=== PATIENT | male | born 1990 | race Caucasian/White ===

== ENCOUNTER 2022-03-01 00:39 | Inpatient (IN) | payer OTHER ==
[~2022-03-01] VITALS: Ht 172.7 cm; Wt 76.1 kg
--- NOTE | 2022-03-01 01:20 | NUR ---
Patient BIB [facility] ambulance unit [id number] from [facility] sent in by Dr Jacques for c/o hematuria with blood clot x1 day. Patient arrived with trach/vent with setting of A/C 16, Tidal Volume 500, PEEP 5 and FIO@ 40%. Has a shiley 8. pt does not respond or follow commands. pt with upper body and lower body contractures. 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
[2022-03-01 01:34] LABS: HEMATOCRIT 28.4 % (36.7-47.1); MEAN CORPUSCULAR HEMOGLOBIN 28.2 uug (23.8-33.4); MEAN CORPUSCULAR VOLUME 85.5 fL (73.0-96.2); PLATELET COUNT (AUTO) 536 K/uL (152-348)
[2022-03-01 01:41] LABS: CARBON DIOXIDE 27 mmol/L (21-32); CHLORIDE 99 mmol/L (98-107); CREATININE 0.7 mg/dL (0.6-1.3); GLUCOSE 96 mg/dL (74-106); POTASSIUM 4.1 mmol/L (3.5-5.1); UREA NITROGEN, BLOOD 15 mg/dL (7-18)
--- NOTE | 2022-03-01 01:42 | NUR ---
ekg performed it reveals sinus rhythm with st elevation. I brought this to the attention of Dr. Senior he states this is not correct this is not a correct reading on the ekg it is not an st elevation mi.
--- NOTE | 2022-03-01 01:44 | NUR ---
alerted er outpatient admitting clerk that pt will need to be admitted for hematuria.
[2022-03-01 01:48] LABS: ALANINE AMINOTRANSFERASE 25 U/L (16-63); ALKALINE PHOSPHATASE 88 U/L (50-136); ASPARTATE AMINOTRANSFERASE 20 U/L (15-37); BILIRUBIN,DIRECT 0.1 mg/dL (0.0-0.2); BILIRUBIN,TOTAL 0.2 mg/dL (0.2-1.0); TOTAL PROTEIN, SERUM 6.9 g/dL (6.4-8.2)
[2022-03-01 02:04] LABS: *BILIRUBIN,URIN NEGATIVE (NEGATIVE); *BLOOD, URINE 3+ (NEGATIVE); *CLARITY,URINE TURBID (CLEAR); *KETONES,URINE NEGATIVE (NEGATIVE); *UROBILINOGEN,URINE 0.2 E.U./dl (NORMAL); LEUKOCYTE ESTERASE ,URINE TRACE (NEGATIVE); NITRITE, URINE NEGATIVE (NEGATIVE); UGLUCOSE NEGATIVE (NEGATIVE)
[2022-03-01 02:05] LABS: *COLOR,URINE BLOODY (YELLOW); BACTERIA,URINE NONE SEEN /HPF (NONE SEEN); RBC,URINE TNTC /HPF (0-3); SQUAMOUS EPITHELIAL CELL,UR NONE SEEN /HPF (NONE SEEN)
--- NOTE | 2022-03-01 04:06 | NUR ---
call to epic panel susie Alves
[2022-03-01] MEDS ORDERED: SENN-261 GT (04:09)
[2022-03-01] MEDS ORDERED: LISI-782 GT (04:09)
[2022-03-01] MEDS ORDERED: IPRA4AER IH (04:09)
[2022-03-01] MEDS ORDERED: SPIR25TA6 GT (04:09)
[2022-03-01] MEDS ORDERED: LANS30CA56 GT (04:09)
[2022-03-01] MEDS ORDERED: VIT500LI GT (04:09)
[2022-03-01] MEDS ORDERED: CARV6.252 GT (04:09)
[2022-03-01] MEDS ORDERED: LEVE500S9 GT (04:09)
[2022-03-01] MEDS ORDERED: SULF1TAB48 GT (04:09)
[2022-03-01] MEDS ORDERED: ACET-73 GT (04:09)
[2022-03-01] MEDS ORDERED: DOCU50LI GT (04:09)
[2022-03-01] MEDS ORDERED: MAGN400O6 GT (04:09)
[2022-03-01] MEDS ORDERED: CRAN3875 GT (04:09)
[2022-03-01] MEDS ORDERED: MULT-213 GT (04:09)
[2022-03-01] MEDS ORDERED: FERR220S16 GT (04:09)
[2022-03-01] MEDS ORDERED: ASPI81TA31 GT (04:09)
[2022-03-01] MEDS ORDERED: CLON1TAB GT (04:09)
[2022-03-01] MEDS ORDERED: NA P133E RC (04:09)
[2022-03-01] MEDS ORDERED: ZINC220T3 GT (04:09)
[2022-03-01] MEDS ORDERED: MORP30TA GT (04:09)
[2022-03-01] MEDS ORDERED: BISA10SU61 RC (04:09)
[2022-03-01] MEDS ORDERED: CLON0.1T GT (04:09)
--- NOTE | 2022-03-01 04:11 | NUR ---
Malissa Alves called back from epic panel.
[2022-03-01] MEDS ORDERED: BISACODYL 10 MG SUPP.RECT RC PRN (04:15)
[2022-03-01] MEDS ORDERED: FLEET ENEMA 133 ML BOTTLE RC PRN (04:15)
[2022-03-01] MEDS ORDERED: MAGNESIUM HYDROXIDE 30 ML LIQUID UDC GT PRN ×2 (04:15→11:50)
[2022-03-01] MEDS ORDERED: CLONIDINE HCL 0.1 MG TABLET GT PRN (04:15)
[2022-03-01] MEDS ORDERED: ACETAMINOPHEN ES 500 MG TABLET- SA PATIENTS-PAIN ONLY GT PRN (04:15)
[2022-03-01] MEDS ORDERED: ACETAMINOPHEN 325 MG TABLET PO PRN (04:30)
[2022-03-01] MEDS ORDERED: MAGNESIUM HYDROXIDE 30 ML LIQUID UDC PO PRN (04:30)
[2022-03-01] MEDS ORDERED: ONDANSETRON 4 MG/2 ML VIAL IV PRN (04:30)
[2022-03-01] MEDS ORDERED: REMEDY ESSENTIAL ZINC PASTE 113 GM TP PRN (04:30)
--- NOTE | 2022-03-01 05:07 | NUR ---
report was given to loyd castorena. pt to go to room 321.
[2022-03-01 05:50] VITALS: BP 138/79
--- NOTE | 2022-03-01 05:58 | NUR ---
pt transported to room 321 via [facility]ney with all belongings and accompanied by RT because the pt is on a vent to the trach. ALBERTO Lacey at bedside to receive the pt.
--- NOTE | 2022-03-01 06:00 | NUR ---
Received pt from er via mary. Pt on trach vent. Under the care of Malissa Alves DOLLY OPERATOR. Dx: UTI failed outpatient treatment. No belongings for the pt. Pt iv intact. Pt has gaming catheter intact and draining hematuria. alf assessment done.Admission process and care plan initiated.Pt vital signs stable. Safety and comfort provided. Will continue to monitor
[2022-03-01] MEDS: IV NS 1000 ML 1,000 ML IV PRN ×2 (06:12→17:09)
[2022-03-01] MEDS ORDERED: CEFTRIAXONE /D5W 50ML IVPB **ER PYXIS IV ONE (06:18)
[2022-03-01] MEDS: CEFTRIAXONE 1 G in IV DEXTROSE 5% 50 ML IV SCH (06:22)
--- NOTE | 2022-03-01 07:59 | NUR ---
Sleeping. Trach to vent with setting of TV 500, PEEP 5, FIO2 40 %, AC 16; GT intact, off GT feedings. Garcia catheter to drainage bag with bloody urine
[2022-03-01] MEDS: DOCUSATE SODIUM 100 MG/10 ML LIQUID UDC GT SCH (08:44)
[2022-03-01] MEDS: SPIRONOLACTONE 25 MG TABLET GT SCH (08:44)
[2022-03-01] MEDS: FERROUS SULFATE 300 MG/5 ML LIQUID UDC GT SCH (08:45)
[2022-03-01] MEDS: CARVEDILOL 6.25 MG TABLET GT SCH ×2 (08:45→17:20)
[2022-03-01] MEDS: MORPHINE SULFATE IR 30 MG TABLET GT SCH ×2 (08:45→17:21)
[2022-03-01] MEDS: levETIRAcetam 500 MG/5 ML LIQUID UDC GT SCH ×2 (08:45→17:20)
[2022-03-01] MEDS: ZINC SULFATE 220 MG CAPSULE GT SCH (08:46)
[2022-03-01] MEDS: PANTOPRAZOLE ORAL SUSPENSION 40 MG SUSPDR.PKT GT SCH (08:46)
[2022-03-01] MEDS: ASCORBIC ACID 500 MG TABLET GT SCH (08:46)
[2022-03-01] MEDS: LISINOPRIL 5 MG TABLET GT SCH (08:46)
[2022-03-01] MEDS: MULTIVITAMINS,THERAPEUTIC TABLET GT SCH (08:46)
[2022-03-01] MEDS: JEVITY 1.2 1000 ML LIQUID GT PRN (08:47)
[2022-03-01] MEDS ORDERED: [UNRECOGNIZED DRUG - OTHER] GT SCH (09:00)
[2022-03-01] MEDS ORDERED: Medication Not On Formulary EA (Cran/Vitc/Mannose/Inulin/Brom (Uti-Stat Liquid) 3,875 MG GT SCH (09:00)
[2022-03-01] MEDS ORDERED: JEVITY 1.2 1000 ML LIQUID GT SCH (10:00)
--- NOTE | 2022-03-01 10:00 | NUR ---
Oral care. Secretions suctioned. G Tube feeding started.
[2022-03-01 12:00] VITALS: BP 132/69
--- NOTE | 2022-03-01 13:00 | NUR ---
Father at bedside, supportive, expressed concern
[2022-03-01 16:14] VITALS: BP 141/70
--- NOTE | 2022-03-01 18:03 | NUR ---
Oral care. Secretions suctioned. Skin care. Air mattress followed up. Garcia catheter with dark red urine with no clots noted to 1600 ml urine. Repositioned comfortably. Afebrile.
--- NOTE | 2022-03-01 19:30 | NUR ---
Received pt in no acute distress,. Iv intact. Pt gaming catheter draining well. Pt on vent. Safety and comfort provided. Will continue to monitor.
[2022-03-01 20:00] VITALS: BP 122/65
[2022-03-01] MEDS: SENNOSIDES 1 TABLET GT SCH (21:52)
[2022-03-01] MEDS: ACETAMINOPHEN 325 MG TABLET GT PRN (21:52)
--- NOTE | 2022-03-01 22:10 | NUR ---
Observed pt diaphoretic. Assessed pt heart rate on 125. Will continue to monitor.
--- NOTE | 2022-03-01 22:16 | NUR ---
Notify Dr. Jacques regarding pt has a lot of blood clots coming out from pt penis. ordered continuous bladder irrigation STAT and Hemoglobin and Hematocrit stat.
[2022-03-01] MEDS: CLONAZEPAM 1 MG TABLET GT PRN (22:48)
--- NOTE | 2022-03-01 23:00 | NUR ---
held gtube feeding.
[2022-03-01 23:17] LABS: HEMATOCRIT 32.7 % (36.7-47.1)
[2022-03-02] VITALS (9 sets, daily range): BP systolic 96–123; BP diastolic 65–81
--- NOTE | 2022-03-02 01:48 | NUR ---
Notify fur ironer regarding pt has sustained 132 and report that pt still has hematuria and on continuous bladder irrigation.
--- NOTE | 2022-03-02 01:55 | NUR ---
Dr. Garduno ordered stat EKG. Stat troponin and lactic acid.
[2022-03-02 04:15] LABS: HEMATOCRIT 24.6 % (36.7-47.1); MEAN CORPUSCULAR HEMOGLOBIN 27.6 uug (23.8-33.4); PLATELET COUNT (AUTO) 559 K/uL (152-348)
[2022-03-02 04:22] LABS: CARBON DIOXIDE 24 mmol/L (21-32); CHLORIDE 101 mmol/L (98-107); CREATININE 0.7 mg/dL (0.6-1.3); GLUCOSE 118 mg/dL (74-106); MAGNESIUM 1.8 mg/dL (1.8-2.4); PHOSPHOROUS 5.4 mg/dL (2.5-4.9); POTASSIUM 4.4 mmol/L (3.5-5.1); UREA NITROGEN, BLOOD 14 mg/dL (7-18)
[2022-03-02] MEDS: IV NS 1000 ML 1,000 ML IV PRN ×2 (05:36→22:09)
--- NOTE | 2022-03-02 05:42 | NUR ---
Pt in no acute distress. Iv intact. Pt turned and repositioned. Offload on heels. Pt on sinus tachycardia. Pt on vent.Prescribed medication given and pt tolerated it well. Pt gaming intact and draining red to pinkish color of urine and draining well. . Pt has new gaming cath of Finnish 24 by 20cc . Irrigated 4 bags of 3L normal saline for continuous bladder irrigation and currently on fifth bag. Safety and comfort provided. All needs are met. Will endorse to incoming nurse for continuity of care.
--- NOTE | 2022-03-02 07:50 | NUR ---
INFORMATION SENT:DIALLO,24 HRS REPORT,CONSULTATION,UR 03/01,PSF INSURANCE INFORMATION:RAI [phone] PAGES:27 FAX SENT BY VASYL
[2022-03-02] MEDS: DOCUSATE SODIUM 100 MG/10 ML LIQUID UDC GT SCH (08:15)
[2022-03-02] MEDS: FERROUS SULFATE 300 MG/5 ML LIQUID UDC GT SCH (08:15)
[2022-03-02] MEDS: PANTOPRAZOLE ORAL SUSPENSION 40 MG SUSPDR.PKT GT SCH (08:16)
[2022-03-02] MEDS: MULTIVITAMINS,THERAPEUTIC TABLET GT SCH (08:16)
[2022-03-02] MEDS: ASCORBIC ACID 500 MG TABLET GT SCH (08:16)
[2022-03-02] MEDS: CLONAZEPAM 1 MG TABLET GT PRN ×3 (08:16→23:35)
[2022-03-02] MEDS: SPIRONOLACTONE 25 MG TABLET GT SCH (08:16)
[2022-03-02] MEDS: ZINC SULFATE 220 MG CAPSULE GT SCH (08:16)
[2022-03-02] MEDS: levETIRAcetam 500 MG/5 ML LIQUID UDC GT SCH ×2 (08:16→17:07)
[2022-03-02] MEDS: LISINOPRIL 5 MG TABLET GT SCH (08:17)
[2022-03-02] MEDS: CARVEDILOL 6.25 MG TABLET GT SCH ×2 (08:17→17:02)
[2022-03-02] MEDS: CEFTRIAXONE 1 G in IV DEXTROSE 5% 50 ML IV SCH (08:20)
[2022-03-02] MEDS: MORPHINE SULFATE IR 30 MG TABLET GT SCH ×2 (08:21→17:02)
--- NOTE | 2022-03-02 12:00 | NUR ---
NO ACUTE3 CHANGE FROM MORNING ASSESSMENT
[2022-03-02] MEDS: ACETAMINOPHEN 325 MG TABLET GT PRN (14:18)
--- NOTE | 2022-03-02 15:00 | NUR ---
DR NGUYEN NOTIFIED OF LOW HH 6.8 WITH ORDER TO TRANSFUSE 1 UNIT PRBC
--- NOTE | 2022-03-02 18:00 | NUR ---
BLOOD TRASFUSION STARTED RIGHT UPPER ARM VIA PICC LINE. CLOSELY MONITORED
--- NOTE | 2022-03-02 18:50 | NUR ---
NO BLOOD TRANSFUSION REACTION NOTED. CONTINUE WITH BLOOD TRANSFUSION ORDERED
--- NOTE | 2022-03-02 19:15 | NUR ---
RECEIVED PATIENT IN BED. NONVERBAL. WITH VENT, SATURATING AT 100%. ON TELEMONITOR, SHOWING SINUS TACHYCARDIA, WITH HR OF 79BPM. WITH PICC LINE, BLOOD TRANSFUSION CURRENTLY ONGOING, NO REACTIONS NOTED. WITH GTUBE, JEVITY FEEDING RUNNING AT 50CC/HR. ON GOING BLADDER IRRIGATION, HEMATURIA NOTED, NO SIGNS OF BLOOD CLOTS IN URINE. SIDE RAILS PADDED FOR SAFETY. SAFETY PRECAUTIONS IN PLACE. WILL CONTINUE TO MONITOR.
--- NOTE | 2022-03-02 20:30 | NUR ---
1 UNIT OF PRBC BLOOD TRANSFUSION COMPLETED. ENDING V/S, ORAL TEMP: 99.6, HR 109BPM, RR, 18,O2 SAT 97%, BP 110/72MMHG. ICE PACK PROVIDED.
[2022-03-02] MEDS: SENNOSIDES 1 TABLET GT SCH (20:58)
--- NOTE | 2022-03-02 23:00 | NUR ---
DR. MARTE HERE TO SEE PATIENT.
[2022-03-02] MEDS: JEVITY 1.2 1000 ML LIQUID GT PRN (23:25)
[2022-03-03] VITALS: BP 151/89
--- NOTE | 2022-03-03 01:37 | NUR ---
LÓPEZ CATHETER NOTED TO BE CLOGGED, MANUAL IRRIGATION DONE. BLOOD CLOTS NOTED. ON GOING CONTINUOUS BLADDER IRRIGATION. ON IRRIGATION BAG #2.
[2022-03-03 04:00] VITALS: BP 148/85
[2022-03-03] MEDS: ACETAMINOPHEN 325 MG TABLET GT PRN ×2 (05:48→08:48)
[2022-03-03 06:09] LABS: HEMATOCRIT 23.9 % (36.7-47.1); MEAN CORPUSCULAR HEMOGLOBIN 28.4 uug (23.8-33.4); MEAN CORPUSCULAR VOLUME 86.2 fL (73.0-96.2); PLATELET COUNT (AUTO) 495 K/uL (152-348)
[2022-03-03 06:38] LABS: CARBON DIOXIDE 28 mmol/L (21-32); CHLORIDE 104 mmol/L (98-107); CREATININE 0.6 mg/dL (0.6-1.3); GLUCOSE 127 mg/dL (74-106); MAGNESIUM 1.9 mg/dL (1.8-2.4); PHOSPHOROUS 3.2 mg/dL (2.5-4.9); POTASSIUM 3.8 mmol/L (3.5-5.1); UREA NITROGEN, BLOOD 16 mg/dL (7-18)
[2022-03-03 07:30] VITALS: BP 167/56
[2022-03-03 07:50] VITALS: BP 154/81
[2022-03-03] MEDS: PANTOPRAZOLE ORAL SUSPENSION 40 MG SUSPDR.PKT GT SCH (08:47)
[2022-03-03] MEDS: FERROUS SULFATE 300 MG/5 ML LIQUID UDC GT SCH (08:47)
[2022-03-03] MEDS: CEFTRIAXONE 1 G in IV DEXTROSE 5% 50 ML IV SCH (08:47)
[2022-03-03] MEDS: levETIRAcetam 500 MG/5 ML LIQUID UDC GT SCH ×2 (08:47→16:46)
[2022-03-03] MEDS: DOCUSATE SODIUM 100 MG/10 ML LIQUID UDC GT SCH (08:47)
[2022-03-03] MEDS: CARVEDILOL 6.25 MG TABLET GT SCH ×2 (08:48→16:48)
[2022-03-03] MEDS: MULTIVITAMINS,THERAPEUTIC TABLET GT SCH (08:48)
[2022-03-03] MEDS: ASCORBIC ACID 500 MG TABLET GT SCH (08:49)
[2022-03-03] MEDS: ZINC SULFATE 220 MG CAPSULE GT SCH (08:49)
[2022-03-03] MEDS: MORPHINE SULFATE IR 30 MG TABLET GT SCH ×2 (08:49→16:47)
[2022-03-03] MEDS: IV NS 1000 ML 1,000 ML IV PRN (10:36)
[2022-03-03 16:00] VITALS: BP 121/67
--- NOTE | 2022-03-03 16:11 | NUR ---
Pt is on continuous bladder irrigation, still draining hematuria with clots. Manual irrigation performed every hour to prevent clotting. MD notified, stat H/H order placed. Pt tolerates feeding well. comfort measures provided, will continue to monitor.
[2022-03-03 16:47] LABS: HEMATOCRIT 23.4 % (36.7-47.1)
--- NOTE | 2022-03-03 17:49 | NUR ---
Hgb 7.3 hct 23.4. notified.
--- NOTE | 2022-03-03 18:25 | NUR ---
Pt total output including continuous bladder irrigation = 16,710cc. 12,000cc input of NS irrigation.
[2022-03-03 20:18] VITALS: BP 135/74
[2022-03-03] MEDS: SENNOSIDES 1 TABLET GT SCH (21:16)
[2022-03-04] VITALS (14 sets, daily range): BP systolic 107–152; BP diastolic 46–86
[2022-03-04] MEDS: IV NS 1000 ML 1,000 ML IV PRN
[2022-03-04] MEDS: JEVITY 1.2 1000 ML LIQUID GT PRN (05:00)
--- NOTE | 2022-03-04 06:00 | NUR ---
Pt rested well in between care; bath rendered; repositioned q2h; aspiration precaution maintained; needs attended.
--- NOTE | 2022-03-04 06:30 | NUR ---
total intake from cbi [id number] LESS OUTPUT 8800 TOTAL OUTPUT = 1200 ML
--- NOTE | 2022-03-04 06:43 | NUR ---
on CBI, flushed multiple times; has blood clots; pt's present output now yellow; continue CBI
[2022-03-04 07:24] LABS: MEAN CORPUSCULAR HEMOGLOBIN 28.8 uug (23.8-33.4)
[2022-03-04 07:27] LABS: MEAN CORPUSCULAR VOLUME 87.1 fL (73.0-96.2); PLATELET COUNT (AUTO) 395 K/uL (152-348)
[2022-03-04 07:40] LABS: CARBON DIOXIDE 24 mmol/L (21-32); CHLORIDE 106 mmol/L (98-107); CREATININE 0.5 mg/dL (0.6-1.3); GLUCOSE 114 mg/dL (74-106); POTASSIUM 3.4 mmol/L (3.5-5.1); UREA NITROGEN, BLOOD 20 mg/dL (7-18)
[2022-03-04] MEDS ORDERED: POTASSIUM CHLORIDE 20 MEQ POWDER PACKET GT ONE (07:45)
[2022-03-04 07:58] LABS: HEMATOCRIT 19.2 % (36.7-47.1)
--- NOTE | 2022-03-04 08:26 | NUR ---
Critical lab value reported by lab. Hemoglobin- 6.3 hematocrit- 19.1 MD was notified. Will transfuse one unit of PRBC when available. urine appears yellow this morning, no signs of hematuria at this time. will continue to manually irrigate.
[2022-03-04] MEDS: FERROUS SULFATE 300 MG/5 ML LIQUID UDC GT SCH (09:48)
[2022-03-04] MEDS: CEFTRIAXONE 1 G in IV DEXTROSE 5% 50 ML IV SCH (09:48)
[2022-03-04] MEDS: ASCORBIC ACID 500 MG TABLET GT SCH (09:48)
[2022-03-04] MEDS: DOCUSATE SODIUM 100 MG/10 ML LIQUID UDC GT SCH (09:48)
[2022-03-04] MEDS: ZINC SULFATE 220 MG CAPSULE GT SCH (09:48)
[2022-03-04] MEDS: MULTIVITAMINS,THERAPEUTIC TABLET GT SCH (09:48)
[2022-03-04] MEDS: MORPHINE SULFATE IR 30 MG TABLET GT SCH ×2 (09:48→17:40)
[2022-03-04] MEDS: ACETAMINOPHEN 325 MG TABLET GT PRN (09:49)
[2022-03-04] MEDS: PANTOPRAZOLE ORAL SUSPENSION 40 MG SUSPDR.PKT GT SCH (09:49)
[2022-03-04] MEDS: CARVEDILOL 6.25 MG TABLET GT SCH ×2 (09:49→17:43)
[2022-03-04] MEDS: levETIRAcetam 500 MG/5 ML LIQUID UDC GT SCH ×2 (09:59→17:40)
--- NOTE | 2022-03-04 20:00 | NUR ---
rounds made patient in bed , trach to vent , tolerating vent settings no respiratory distress noted . breathing even and unlabored . tf in progress Jevity 1.2 at 55 ml/hr via the peg . Garcia catheter in placed with yellowish urine bladder irrigation is off . no s/s of pain .
[2022-03-04] MEDS: SENNOSIDES 1 TABLET GT SCH (21:44)
[2022-03-05 00:08] VITALS: BP 155/81
[2022-03-05] MEDS: ACETAMINOPHEN 650 MG/20.3 ML LIQUID UDC GT PRN ×2 (00:15→20:32)
[2022-03-05] MEDS: CLONAZEPAM 1 MG TABLET GT PRN ×2 (00:15→20:31)
--- NOTE | 2022-03-05 00:15 | NUR ---
given Tylenol via the peg c/o low grade temp 100.8. given Klonopin c/o agitation patient restless moving head /neck form side to side .
[2022-03-05 04:48] VITALS: BP 139/66
[2022-03-05 06:16] LABS: ABG BASE EXCESS 2.1 mmol/L; ABG HCO3 25.4 mmol/L; ABG PCO2 34.4 mmHg (35.0-45.0); ABG PH 7.486 (7.350-7.450); ABG PO2 120.7 mmHg (75.0-100.0); ABG SITE RIGHT RADIAL; ABG TOTAL HEMOGLOBIN 8.9 G/dL (13.5-18.0); COHb 0.3 % (0.5-1.5); MetHb 0.4 % (0.0-1.5); O2Hb 97.9 % (94.0-97.0); VENT MODE VENT - A/C; VT, ABG 500 mL
[2022-03-05 07:45] LABS: CARBON DIOXIDE 26 mmol/L (21-32); CHLORIDE 103 mmol/L (98-107); CREATININE 0.5 mg/dL (0.6-1.3); GLUCOSE 107 mg/dL (74-106); POTASSIUM 3.5 mmol/L (3.5-5.1); UREA NITROGEN, BLOOD 11 mg/dL (7-18)
[2022-03-05 07:50] LABS: MEAN CORPUSCULAR HEMOGLOBIN 30.1 uug (23.8-33.4); MEAN CORPUSCULAR VOLUME 89.9 fL (73.0-96.2); PLATELET COUNT (AUTO) 410 K/uL (152-348)
[2022-03-05] MEDS: FERROUS SULFATE 300 MG/5 ML LIQUID UDC GT SCH (09:01)
[2022-03-05] MEDS: MORPHINE SULFATE IR 30 MG TABLET GT SCH ×2 (09:01→17:53)
[2022-03-05] MEDS: PANTOPRAZOLE ORAL SUSPENSION 40 MG SUSPDR.PKT GT SCH (09:01)
[2022-03-05] MEDS: ASCORBIC ACID 500 MG TABLET GT SCH (09:01)
[2022-03-05] MEDS: ZINC SULFATE 220 MG CAPSULE GT SCH (09:01)
[2022-03-05] MEDS: CARVEDILOL 6.25 MG TABLET GT SCH ×2 (09:01→17:52)
[2022-03-05] MEDS: DOCUSATE SODIUM 100 MG/10 ML LIQUID UDC GT SCH (09:02)
[2022-03-05] MEDS: levETIRAcetam 500 MG/5 ML LIQUID UDC GT SCH ×2 (09:02→17:53)
[2022-03-05] MEDS: MULTIVITAMINS,THERAPEUTIC TABLET GT SCH (09:02)
[2022-03-05] MEDS: CEFTRIAXONE 1 G in IV DEXTROSE 5% 50 ML IV SCH (09:03)
[2022-03-05 09:15] LABS: EOSINOPHILS % (MANUAL) 5 % (0-8); LYMPHOCYTES % (MANUAL) 2 % (20-40); MONOCYTES % (MANUAL) 2 % (2-10); NEUTROPHILS % (MANUAL) 91 % (42-75)
[2022-03-05] MEDS: JEVITY 1.2 1000 ML LIQUID GT PRN (11:25)
--- NOTE | 2022-03-05 11:26 | NUR ---
PEG TUBE PATENCY CHECKED. FEEDING STARTED AT 50CC/[id number]
[2022-03-05 11:58] VITALS: BP 124/71
[2022-03-05 16:00] VITALS: BP 128/74
--- NOTE | 2022-03-05 18:19 | NUR ---
SACRAL WOUND NOTED. APPLIED ZGUARD AND MEPILEX. REPOSITIONED PT Q2H
[2022-03-05 19:58] VITALS: BP 128/72
--- NOTE | 2022-03-05 20:30 | NUR ---
visited by patient sister name Verenice updated with patient status and condition questions answered .
[2022-03-05] MEDS: SENNOSIDES 1 TABLET GT SCH (20:31)
--- NOTE | 2022-03-05 21:30 | NUR ---
suction via the trach and via orally . trach care done .
--- NOTE | 2022-03-06 | NUR ---
temp 100.0 F given prn Tylenol via the peg.
[2022-03-06 00:01] VITALS: BP 132/76
[2022-03-06] MEDS: ACETAMINOPHEN 650 MG/20.3 ML LIQUID UDC GT PRN ×2 (03:55→20:28)
[2022-03-06 04:10] VITALS: BP 139/87
--- NOTE | 2022-03-06 04:30 | NUR ---
assisted educational/development assistant with am care ,changed soiled linens and gown . turned and reposition back off offloaded back with pillows.heels off the bed .
[2022-03-06 07:07] LABS: CARBON DIOXIDE 29 mmol/L (21-32); CHLORIDE 102 mmol/L (98-107); CREATININE 0.5 mg/dL (0.6-1.3); GLUCOSE 103 mg/dL (74-106); POTASSIUM 3.7 mmol/L (3.5-5.1); UREA NITROGEN, BLOOD 15 mg/dL (7-18)
[2022-03-06 07:09] LABS: HEMATOCRIT 25.3 % (36.7-47.1); MEAN CORPUSCULAR HEMOGLOBIN 30.9 uug (23.8-33.4); MEAN CORPUSCULAR VOLUME 90.3 fL (73.0-96.2); PLATELET COUNT (AUTO) 407 K/uL (152-348)
[2022-03-06] MEDS ORDERED: CARV6.252 GT (09:14)
[2022-03-06] MEDS ORDERED: CEPH500C2 PO (09:14)
[2022-03-06] MEDS: levETIRAcetam 500 MG/5 ML LIQUID UDC GT SCH ×2 (09:36→17:13)
[2022-03-06] MEDS: MULTIVITAMINS,THERAPEUTIC TABLET GT SCH (09:37)
[2022-03-06] MEDS: CARVEDILOL 6.25 MG TABLET GT SCH ×2 (09:37→17:14)
[2022-03-06] MEDS: CEFTRIAXONE 1 G in IV DEXTROSE 5% 50 ML IV SCH (09:37)
[2022-03-06] MEDS: ASCORBIC ACID 500 MG TABLET GT SCH (09:37)
[2022-03-06] MEDS: PANTOPRAZOLE ORAL SUSPENSION 40 MG SUSPDR.PKT GT SCH (09:37)
[2022-03-06] MEDS: DOCUSATE SODIUM 100 MG/10 ML LIQUID UDC GT SCH (09:37)
[2022-03-06] MEDS: ZINC SULFATE 220 MG CAPSULE GT SCH (09:37)
[2022-03-06] MEDS: FERROUS SULFATE 300 MG/5 ML LIQUID UDC GT SCH (09:37)
[2022-03-06] MEDS: MORPHINE SULFATE IR 30 MG TABLET GT SCH ×2 (09:37→17:14)
[2022-03-06 11:29] VITALS: BP 138/76
[2022-03-06] MEDS: JEVITY 1.2 1000 ML LIQUID GT PRN (13:09)
--- NOTE | 2022-03-06 16:02 | NUR ---
DISCHARGE SUMMARY DONE. PT WILL GO BACK TO [facility] MORNING AT 10 PER NIEVES CM
--- NOTE | 2022-03-06 17:03 | NUR ---
RAPID COVID TEST COLLECTED AND SENT TO THE LAB
[2022-03-06 17:14] VITALS: BP 140/83
[2022-03-06] MEDS: SENNOSIDES 1 TABLET GT SCH (20:28)
--- NOTE | 2022-03-06 20:30 | NUR ---
PT FEBRILE 100.3. GAVE TYLENOL 650MG PRN, WILL REASSESS IN 1HR
--- NOTE | 2022-03-07 01:34 | NUR ---
TYLENOL EFFECTIVE. PT TEMP 98.8. WILL CONT TO MONITOR
--- NOTE | 2022-03-07 08:00 | NUR ---
received with eyes open, on trache connected to vent with same settings, sat at 100, on continuous pulse oximetry, G tube clamped at this time ad per scheduled, meds given , head of bed elevated, gaming cath draining yellow urine, repositioned for comfort, pt going back to snf today
[2022-03-07 08:24] LABS: HEMATOCRIT 25.9 % (36.7-47.1); MEAN CORPUSCULAR HEMOGLOBIN 29.4 uug (23.8-33.4); PLATELET COUNT (AUTO) 461 K/uL (152-348)
[2022-03-07] MEDS: ZINC SULFATE 220 MG CAPSULE GT SCH (08:34)
[2022-03-07] MEDS: MULTIVITAMINS,THERAPEUTIC TABLET GT SCH (08:34)
[2022-03-07] MEDS: MORPHINE SULFATE IR 30 MG TABLET GT SCH (08:34)
[2022-03-07 08:37] VITALS: BP 146/85
[2022-03-07] MEDS: CARVEDILOL 6.25 MG TABLET GT SCH (08:37)
[2022-03-07] MEDS: PANTOPRAZOLE ORAL SUSPENSION 40 MG SUSPDR.PKT GT SCH (08:37)
[2022-03-07] MEDS: CEFTRIAXONE 1 G in IV DEXTROSE 5% 50 ML IV SCH (08:37)
[2022-03-07] MEDS: levETIRAcetam 500 MG/5 ML LIQUID UDC GT SCH (08:38)
[2022-03-07] MEDS: FERROUS SULFATE 300 MG/5 ML LIQUID UDC GT SCH (08:38)
[2022-03-07] MEDS: DOCUSATE SODIUM 100 MG/10 ML LIQUID UDC GT SCH (08:39)
[2022-03-07 08:47] LABS: CARBON DIOXIDE 30 mmol/L (21-32); CHLORIDE 102 mmol/L (98-107); CREATININE 0.6 mg/dL (0.6-1.3); GLUCOSE 109 mg/dL (74-106); UREA NITROGEN, BLOOD 19 mg/dL (7-18)
[2022-03-07] MEDS: ASCORBIC ACID 500 MG TABLET GT SCH (09:24)
--- NOTE | 2022-03-07 09:30 | NUR ---
am care done, repositioned
--- NOTE | 2022-03-07 10:45 | NUR ---
picc line and peripheral lines removed, no swelling/redness noted on site, ambulance here
--- NOTE | 2022-03-07 11:10 | NUR ---
report given to ambulance attendants, taken per mary with vent same vent setting, in stable condition, pt has no belonging
== END 2022-03-07 11:10 | DRG 463 ==
LOC: ER 00:47 → TELE3 05:13 → MEDSURG3 03-03 10:18 → TELE3 03-03 15:43
PROVIDERS: ADMIT Internal Medicine; ATTEND Internal Medicine
PROC: 5A1955Z Respiratory Ventilation, Greater than 96 Consecutive Hours (ICD-10-PCS; 2022-03-01)
PROC: 02HV33Z Insertion of Infusion Device into Superior Vena Cava, Percutaneous Approach (ICD-10-PCS; principal; 2022-03-02)
PROC: B548ZZA Ultrasonography of Superior Vena Cava, Guidance (ICD-10-PCS; principal; 2022-03-02)
PROC: 30243N1 Transfusion of Nonautologous Red Blood Cells into Central Vein, Percutaneous Approach (ICD-10-PCS; principal; 2022-03-02)
DX: N39.0 Urinary tract infection, site not specified (principal); G93.49 Other encephalopathy; G93.1 Anoxic brain damage, not elsewhere classified; R53.2 Functional quadriplegia; D62 Acute posthemorrhagic anemia; D68.69 Other thrombophilia; D46.9 Myelodysplastic syndrome, unspecified; R31.0 Gross hematuria; Z93.0 Tracheostomy status; D75.839 Thrombocytosis, unspecified; G24.9 Dystonia, unspecified; G40.909 Epilepsy, unspecified, not intractable, without status epilepticus; G89.4 Chronic pain syndrome; I50.9 Heart failure, unspecified; I11.0 Hypertensive heart disease with heart failure; J96.10 Chronic respiratory failure, unspecified whether with hypoxia or hypercapnia; K21.9 Gastro-esophageal reflux disease without esophagitis; R13.10 Dysphagia, unspecified; Z99.11 Dependence on respirator [ventilator] status; Z79.891 Long term (current) use of opiate analgesic; Z93.1 Gastrostomy status; Z74.09 Other reduced mobility; R00.0 Tachycardia, unspecified; Z86.74 Personal history of sudden cardiac arrest; Z20.822 Contact with and (suspected) exposure to COVID-19; L90.5 Scar conditions and fibrosis of skin
CPT/HCPCS: 36415; 36569; 36600; 70030-TC; 71045; 83605; 83735; 84100; 84484; 85018; 85025; 85730; 86850; 86900; 86901; 86920; 87040; 87086; 93005; 94002; 94003; 94640; 94760; A4663; A6209; G0378; J0696; J7040; P9016